=== PATIENT | male | born 1955 | race Caucasian/White ===

== ENCOUNTER 2022-01-11 10:37 | Emergency (ER) | payer MEDICARE, OTHER ==
[2022-01-11] MEDS ORDERED: predniSONE 20 MG Tab PO ONE (10:38)
[2022-01-11] MEDS ORDERED: Azithromycin 250 MG Tab PO ONE ×2 (10:38→12:34)
[2022-01-11 10:52] VITALS: BP 143/74; PULSE 50
[2022-01-11 11:33] LABS: ANION GAP 10.6 mEq/L (7-13); CHLORIDE,CL 102 mmol/L (98-107); SODIUM,NA 140 mmol/L (136-145)
[2022-01-11 11:35] LABS: ESTIMATED GFR 58 mL/min (>=60)
[2022-01-11] MEDS ORDERED: Albuterol/Ipratropium 3.0-0.5 MG/3 ML Neb Soln NEB ONE (12:17)
[2022-01-11] MEDS ORDERED: methylPREDNISolone Sodium Succinate 125 MG/2 ML SDV IM ONE (12:34)
[2022-01-11] MEDS ORDERED: predniSONE 20 MG Tab ONE (12:51)
[2022-01-11] MEDS ORDERED: Azithromycin 250 MG Tab ONE (12:51)
[2022-01-11] MEDS ORDERED: methylPREDNISolone Sodium Succinate 125 MG/2 ML SDV IVPUSH ONE (13:05)
== END 2022-01-11 13:00 | disposition home or self-care (01) ==
LOC: DL.ED 10:37
DX: M94.0 Chondrocostal junction syndrome [Tietze] (principal); J20.9 Acute bronchitis, unspecified; I10 Essential (primary) hypertension; I25.2 Old myocardial infarction; Z20.822 Contact with and (suspected) exposure to COVID-19; Z79.899 Other long term (current) drug therapy; Z88.8 Allergy status to other drugs, medicaments and biological substances
CPT/HCPCS: 36415; 71045; 80053; 80307; 82150; 83605; 83690; 83735; 83880; 84145; 84443; 84484; 85025; 86140; 93005; 94640; 96374; 99285-25; A9270-GY; J2930; J7512; J7620-GY; U0002